=== PATIENT | male | born 1995 | race American Indian/Alaskan Native ===

== ENCOUNTER 2017-09-29 13:32 | Emergency (ER) | payer MEDICAID ==
[2017-09-29 13:40] VITALS: BP 117/69
[2017-09-29] MEDS ORDERED: DUONEB *Not for PRN Use IH ONE (14:50)
--- NOTE | 2017-09-29 14:53 | Emergency Department Report ---
Chief Complaint: Upper Respiratory Infection Stated Complaint: COUGHING,SPASMS,CHEST PAINS Time Seen by Provider: 09/29/17 14:50 - HPI History of Present Illness: 22-year-old male presents with his mother with a complaint of a productive cough that has been going on for the past 3 weeks. He denies any shortness of breath but he will sometimes have coughing fits that irritate his chest. No fever. No past medical history. Psychiatric history of schizophrenia but patient is highly functional. PCP is Dr. hampton but they have not seen him. Attempted Robitussin and TheraFlu and Vicks VapoRub without relief. - ROS Review of Systems: Patient is positive for cough and chest wall soreness Patient is negative for fever, shortness of breath, back pain, nausea, vomiting or diarrhea. - Exam Vital Signs: Vital Signs 09/29/17 13:36 Temperature 99.5 F Pulse Rate 97 H Respiratory 16 Rate Blood Pressure 117/69 O2 Sat by Pulse 99 Oximetry Physical Exam: Patient does not appear to be in any acute distress. A productive cough heard during examination. No tachypnea or accessory muscle use. Heart and lungs sounds normal to auscultation. Patient is awake and cooperative. MSE screening note: Focused history and physical exam performed. Due to findings the following was ordered: I have ordered a two-view chest x-ray and the patient will receive a DuoNeb. ED Disposition for MSE Condition: Stable
--- NOTE | 2017-09-29 15:48 | XRay Report ---
FINAL REPORT EXAM: XR CHEST ROUTINE 2V HISTORY: cough TECHNIQUE: PA and lateral views of the chest PRIORS: None. FINDINGS: Lines, tubes, and devices: N/A Lungs and pleura: Trachea is normal in position. Lungs are clear of infiltrate, pleural effusion, vascular congestion, or pneumothorax. Cardiomediastinal silhouette: Cardiac and mediastinal silhouettes are unremarkable. Other: Bony structures are intact. Surgical clips in the soft tissues at the base of the right neck are noted. IMPRESSION: No acute cardiopulmonary process seen.
--- NOTE | 2017-09-29 15:54 | Emergency Department Report ---
HPI - General Chief Complaint: Upper Respiratory Infection Time Seen by Provider: 09/29/17 14:50 - HPI HPI: 22-year-old -[place] male comes in for complaint of productive cough approximately 3 weeks with associated chest pain when coughing. Admits to runny nose. Patient denies any fever or denies chills denies nausea denies vomiting. Reports it is try Robitussin and TheraFlu without much result resolution. History of asthma he does have a primary care provider which is Dr. Leigh but has not seen him in a while. Patient reports that he is to take his psychiatry medication as prescribed. ED Past Medical Hx - Past Medical History Previous Medical History?: Yes Hx Psychiatric Treatment: Yes (Schizophrenia) - Surgical History Past Surgical History?: No - Social History Smoking Status: Current Every Day Smoker Substance Use Type: Marijuana - Medications Home Medications: Home Medications Medication Instructions Recorded Confirmed Last Taken Type ALBUTEROL Inhaler [ProAir HFA 2 puff IH QID PRN #1 inhalation 09/29/17 Unknown Rx Inhaler] ED Review of Systems ROS: Stated complaint: COUGHING,SPASMS,CHEST PAINS Other details as noted in HPI Constitutional: denies: chills, fever Eyes: denies: eye pain, eye discharge, vision change ENT: other (rhinorrhea). denies: ear pain, throat pain Respiratory: cough. denies: shortness of breath, SOB with exertion, wheezing Cardiovascular: chest pain (with cough) Endocrine: no symptoms reported Gastrointestinal: denies: abdominal pain, nausea, diarrhea Genitourinary: denies: urgency, dysuria Musculoskeletal: denies: back pain, joint swelling, arthralgia Skin: denies: rash, lesions Neurological: denies: headache, weakness, paresthesias Psychiatric: denies: anxiety, depression Hematological/Lymphatic: denies: easy bleeding, easy bruising Physical Exam - Physical Exam Vital Signs: Vital Signs 09/29/17 09/29/17 13:36 15:30 Temperature 99.5 F Pulse Rate 97 H Pulse Rate [ 81 Posterior] Respiratory 16 Rate Respiratory 20 Rate [Posterior ] Blood Pressure 117/69 O2 Sat by Pulse 99 Oximetry Physical Exam: GENERAL APPEARANCE: Well developed, well nourished, in no acute distress. SKIN: Inspection of the skin reveals no rashes, ulcerations or petechiae. HEENT: The sclerae were anicteric and conjunctivae were pink and moist. Extraocular movements were intact and pupils were equal, round, and reactive to light with normal accommodation. External inspection of the ears and nose showed no scars, lesions, or masses. Lips, teeth, and gums showed normal mucosa. The oral mucosa, hard and soft palate, tongue and posterior pharynx were normal. NECK: Supple and symmetric. There was no thyroid enlargement, and no tenderness , or masses were felt. CHEST: Normal AP diameter and normal contour without any kyphoscoliosis. LUNGS: Auscultation of the lungs revealed normal breath sounds without any other adventitious sounds or rubs. CARDIOVASCULAR: There was a regular rate and rhythm without any murmurs, gallops , rubs. The carotid pulses were normal and 2+ bilaterally without bruits. Peripheral pulses were 2+ and symmetric. ABDOMEN: Soft and nontender with normal bowel sounds. The liver span was approximately 5-6 cm in the right midclavicular line by percussion. The liver edge was nontender. The spleen was not palpable. There were no inguinal or umbilical hernias noted. No ascites was noted. LYMPH NODES: No lymphadenopathy was appreciated in the neck, axillae or groin. MUSCULOSKELETAL: Gait was normal. There was no tenderness or effusions noted. Muscle strength and tone were normal. EXTREMITIES: No cyanosis, clubbing or edema. NEUROLOGIC: Alert and oriented x 3. Normal affect. Gait was normal. Normal deep tendon reflexes with no pathological reflexes. Sensation to touch was normal. ED Course Vital Signs 09/29/17 09/29/17 13:36 15:30 Temperature 99.5 F Pulse Rate 97 H Pulse Rate [ 81 Posterior] Respiratory 16 Rate Respiratory 20 Rate [Posterior ] Blood Pressure 117/69 O2 Sat by Pulse 99 Oximetry ED Medical Decision Making - Radiology Data Radiology results: report reviewed, image reviewed FINDINGS: Lines, tubes, and devices: N/A Lungs and pleura: Trachea is normal in position. Lungs are clear of infiltrate, pleural effusion, vascular congestion, or pneumothorax. Cardiomediastinal silhouette: Cardiac and mediastinal silhouettes are unremarkable. Other: Bony structures are intact. Surgical clips in the soft tissues at the base of the right neck are noted. IMPRESSION: No acute cardiopulmonary process seen. - Medical Decision Making Patient has been evaluated by this provider fast track. Chest x-ray was ordered waiting for results. Patient has had a treatment of DuoNeb which reports he is doing much better no active coughing During my exam. Critical care attestation.: If time is entered above; I have spent that time in minutes in the direct care of this critically ill patient, excluding procedure time. ED Disposition Clinical Impression: Cough Disposition: DC-01 TO HOME OR SELFCARE Is pt being admited?: No Does the pt Need Aspirin: No Condition: Stable Instructions: Cold Symptoms (ED) Additional Instructions: Please use albuterol inhaler for cough as needed every 4-6 hours. Please follow up with your primary care provider for further evaluation. Prescriptions: ALBUTEROL Inhaler [ProAir HFA Inhaler] 2 puff IH QID PRN #1 inhalation PRN Reason: Shortness Of Breath Referrals: PRIMARY CARE,MD [Primary Care Provider] - 3-5 Days your,provider [Other] - 3-5 Days Forms: Accompanied Note
== END 2017-09-29 16:26 | disposition home or self-care (01) ==
LOC: ED 13:32
DX: R05 Cough (principal); F20.9 Schizophrenia, unspecified; F17.200 Nicotine dependence, unspecified, uncomplicated; F12.10 Cannabis abuse, uncomplicated
CPT/HCPCS: 71046; 94640